=== PATIENT | female | born 1960 | race Caucasian/White ===

== ENCOUNTER 2020-03-16 12:18 | Inpatient (IN) ==
[2020-03-16 13:53] LABS: Mean Corpuscular Hemoglobin 32.3 pg (28.0-33.3); Mean Corpuscular Volume 96.5 fL (83.0-100.0)
[2020-03-16 13:55] LABS: Basophils % 0.3 %; Eosinophils % 0.2 %; Hematocrit 35.8 % (35.3-44.9); Immature Granulocytes % 0.9 % (0-4); Immature Platelets 3.1 % (1.1-6.1); Lymphocytes # 0.9 K/mcL (0.6-4.6); Lymphocytes % 9.3 %; Mean Corpuscular HGB Conc 33.5 g/dL (31.6-35.5); Mean Platelet Volume 9.6 fL (9.4-12.4); Monocytes # 1.3 K/mcL (0.0-1.3); Monocytes % 13.5 %; Neutrophils # 7.1 K/mcL (1.6-8.9); Platelet Count 145 K/mcL (140-400); Red Blood Count 3.71 M/mcL (3.82-4.97); Red Cell Distribution Width 14.3 % (11.5-14.5); Segmented Neutrophils % 75.8 %; White Blood Count 9.4 K/mcL (4.3-11.1)
[2020-03-16 14:07] LABS: BUN/Creatinine Ratio 18 (6-26); Blood Urea Nitrogen 45 mg/dL (6-20); Calcium 9.2 mg/dL (8.6-10.3); Carbon Dioxide 21 mEq/L (23-29); Chloride 100 mEq/L (98-107); Ethanol < 10 mg/dL (Less than 10); Glucose 104 mg/dL (70-105); Osmolality,Calculated 294 (280-300); Potassium 2.7 mEq/L (3.5-5.1); Sodium 136 mEq/L (136-145); eGFR For African Americans 25 (> 60); eGFR For Non-African Americans 20 (> 60)
[2020-03-16] MEDS ORDERED: 0.9 % Sodium Chloride 1,000 ML IVC ONE (14:15)
[2020-03-16] MEDS ORDERED: Potassium Chloride Elixir 20 MEQ/15 ML UDC PO ONE (14:40)
[2020-03-16] MEDS ORDERED: Naloxone 0.4 MG/ML INJ IVP PRN (16:54)
[2020-03-16] MEDS ORDERED: Acetaminophen 325 MG TABLET PO PRN (16:54)
[2020-03-16] MEDS ORDERED: Ondansetron 4 MG/2 ML VIAL IVP PRN (16:54)
[2020-03-16] MEDS ORDERED: MOM Conc 10 ML UD.LIQ PO PRN (16:54)
[2020-03-16] MEDS ORDERED: Mag Hydrox/Al Hydrox/Simeth 30 ML UDC PO PRN (16:54)
[2020-03-16] MEDS ORDERED: Perflutren Lipid Microsphere 1.3 ML in 0.9 % Sodium Chloride 8.7 ML IVP PRN (16:58)
[2020-03-16] MEDS: 0.45 % Sodium Chloride w/KCl 20 MEQ/1,000 ML MLS IVC SCH (17:34)
[2020-03-16 17:51] LABS: Bilirubin,Urine Negative (Negative); Blood,Urine Large (Negative); Clarity,Urine Clear (Clear); Color,Urine Light-Yellow (Yellow); Glucose,Urine (UA) Normal (Normal); Ketones,Urine Trace mg/dL (Negative); Leukocyte Esterase,Urine Negative (Negative); Nitrite,Urine Negative (Negative); PH,Urine 6.5 pH Units (5.0-8.0); Protein,Urine 50 mg/dL (Neg-Trace); Specific Gravity,Urine 1.017 (1.010-1.025); Squamous Epithelial Cell,Urine Few per hpf (None-Few); Urobilinogen,Urine Normal (Normal)
[2020-03-16] MEDS: *HR* Heparin 5,000 UNIT/ML VIAL SQ SCH (18:11)
[2020-03-17 01:12] LABS: Troponin I 0.05 ng/mL (< 0.04)
[2020-03-17 01:22] LABS: Basophils % 0.5 %; Eosinophils % 0.5 %; Hematocrit 32.3 % (35.3-44.9); Hemoglobin 10.9 g/dL (11.5-15.4); Immature Granulocytes % 1.3 % (0-4); Lymphocytes # 1.4 K/mcL (0.6-4.6); Lymphocytes % 17.5 %; Mean Corpuscular HGB Conc 33.7 g/dL (31.6-35.5); Mean Corpuscular Hemoglobin 33.2 pg (28.0-33.3); Mean Corpuscular Volume 98.5 fL (83.0-100.0); Mean Platelet Volume 10.1 fL (9.4-12.4); Monocytes # 1.2 K/mcL (0.0-1.3); Monocytes % 14.4 %; Neutrophils # 5.3 K/mcL (1.6-8.9); Platelet Count 113 K/mcL (140-400); Red Blood Count 3.28 M/mcL (3.82-4.97); Red Cell Distribution Width 14.4 % (11.5-14.5); Segmented Neutrophils % 65.8 %
[2020-03-17 01:35] LABS: Albumin 3.3 g/dL (3.5-5.7); Albumin/Globulin Ratio 1.2 (1.1-2.2); Bilirubin,Total 0.4 mg/dL (0.3-1.0); Calcium 8.4 mg/dL (8.6-10.3); Chol/HDL Ratio 4.8 (0-4.9); Globulin 2.7 g/dL (2.4-3.5); Magnesium 1.9 mg/dL (1.6-2.6); Phosphorous 2.6 mg/dL (2.7-4.5); Thyroid Stimulating Hormone 1.634 mcIU/mL (0.340-5.600)
[2020-03-17 01:52] LABS: Vitamin D 25 Hydroxy 21 ng/mL (30-80)
[2020-03-17 01:55] LABS: Vitamin B12 > 1500 pg/mL (250-1100)
[2020-03-17] MEDS: 0.45 % Sodium Chloride w/KCl 20 MEQ/1,000 ML MLS IVC SCH ×2 (03:36→15:10)
[2020-03-17] MEDS: *HR* Heparin 5,000 UNIT/ML VIAL SQ SCH ×2 (06:04→21:50)
[2020-03-17] MEDS: Aspirin Enteric Coated 81 MG Tablet PO SCH (08:48)
[2020-03-17 09:30] LABS: Amphetamine Screen,Urine Negative ng/mL (Cutoff=1000); Barbiturate Screen,Urine Negative ng/mL (Cutoff=200); Benzodiazepines Screen,Urine Negative ng/mL (Cutoff=200); Cannabinoid Screen,Urine Negative ng/mL (Cutoff = 50); Cocaine Screen,Urine Negative ng/mL (Cutoff= 300); Opiate Screen,Urine Positive ng/mL (Cutoff=300); Phencyclidine Screen,Urine Negative ng/mL (Cutoff=25)
[2020-03-17 19:41] LABS: Bilirubin,Urine Negative (Negative); Blood,Urine Moderate (Negative); Clarity,Urine Clear (Clear); Color,Urine Colorless (Yellow); Glucose,Urine (UA) Normal (Normal); Ketones,Urine Trace mg/dL (Negative); Leukocyte Esterase,Urine Negative (Negative); Mucus,Urine Few per lpf (None-Few); Nitrite,Urine Negative (Negative); Protein,Urine Negative (Neg-Trace); RBC,Urine 0-3 per hpf (0-3); Specific Gravity,Urine 1.007 (1.010-1.025); Squamous Epithelial Cell,Urine Few per hpf (None-Few); Urobilinogen,Urine Normal (Normal); WBC,Urine 0-3 per hpf (0-3)
[2020-03-17] MEDS ORDERED: QUEtiapine Fumarate 100 MG TABLET PO SCH (21:00)
[2020-03-17] MEDS ORDERED: *HR* LORazepam 0.5 MG TABLET PO ONE (23:21)
[2020-03-18] MEDS ORDERED: *HR* LORazepam 0.5 MG TABLET PO ONE (01:12)
[2020-03-18] MEDS ORDERED: *HR* LORazepam 2 MG/ML VIAL IVP ONE (01:48)
[2020-03-18] MEDS: 0.45 % Sodium Chloride w/KCl 20 MEQ/1,000 ML MLS IVC SCH (05:35)
[2020-03-18] MEDS: *HR* Heparin 5,000 UNIT/ML VIAL SQ SCH ×2 (05:35→16:32)
[2020-03-18 05:49] LABS: BUN/Creatinine Ratio 16 (6-26); Blood Urea Nitrogen 19 mg/dL (6-20); Calcium 8.9 mg/dL (8.6-10.3); Carbon Dioxide 18 mEq/L (23-29); Chloride 107 mEq/L (98-107); Glucose 81 mg/dL (70-105); Osmolality,Calculated 283 (280-300); Phosphorous < 1.0 mg/dL (2.7-4.5); Potassium 4.2 mEq/L (3.5-5.1); Sodium 136 mEq/L (136-145); eGFR For African Americans 58 (> 60); eGFR For Non-African Americans 48 (> 60)
[2020-03-18] MEDS: Cyanocobalamin (B-12) 1,000 MCG TABLET PO SCH ×2 (08:03→08:59)
[2020-03-18] MEDS: Aspirin Enteric Coated 81 MG Tablet PO SCH ×2 (08:03→08:59)
[2020-03-18] MEDS: ARIPiprazole 5 MG TABLET PO SCH ×2 (08:03→08:59)
[2020-03-18] MEDS ORDERED: Haloperidol Lactate 5 MG/ML VIAL IVP ONE ×2 (08:39→08:41)
[2020-03-18] MEDS: atenoloL 50 MG TABLET PO SCH (08:59)
[2020-03-18] MEDS ORDERED: Haloperidol Lactate 5 MG/ML VIAL IVP PRN (10:02)
[2020-03-18] MEDS: Ziprasidone 80 MG CAPSULE PO SCH ×2 (10:17→20:09)
[2020-03-18] MEDS: Divalproex (12 HR) 250 MG TABLET PO SCH ×2 (10:17→20:09)
[2020-03-18] MEDS ORDERED: Haloperidol Lactate 5 MG/ML VIAL IM PRN (12:27)
[2020-03-18] MEDS ORDERED: QUEtiapine Fumarate 100 MG TABLET PO PRN (12:28)
[2020-03-18] MEDS: Baclofen 10 MG TABLET PO SCH ×2 (12:31→20:09)
[2020-03-19] MEDS: *HR* Heparin 5,000 UNIT/ML VIAL SQ SCH ×2 (05:15→17:43)
[2020-03-19 07:54] LABS: Hematocrit 35.8 % (35.3-44.9); Hemoglobin 11.3 g/dL (11.5-15.4); Mean Corpuscular HGB Conc 31.6 g/dL (31.6-35.5); Mean Corpuscular Hemoglobin 32.4 pg (28.0-33.3); Mean Corpuscular Volume 102.6 fL (83.0-100.0); Mean Platelet Volume 9.9 fL (9.4-12.4); Platelet Count 148 K/mcL (140-400); Red Blood Count 3.49 M/mcL (3.82-4.97); Red Cell Distribution Width 14.9 % (11.5-14.5); White Blood Count 7.1 K/mcL (4.3-11.1)
[2020-03-19 07:57] LABS: BUN/Creatinine Ratio 14 (6-26); Blood Urea Nitrogen 14 mg/dL (6-20); Calcium 9.1 mg/dL (8.6-10.3); Carbon Dioxide 19 mEq/L (23-29); Chloride 110 mEq/L (98-107); Glucose 68 mg/dL (70-105); Osmolality,Calculated 289 (280-300); Phosphorous 3.2 mg/dL (2.7-4.5); Sodium 140 mEq/L (136-145); eGFR For African Americans > 60 (> 60); eGFR For Non-African Americans 56 (> 60)
[2020-03-19] MEDS: Ziprasidone 80 MG CAPSULE PO SCH ×2 (09:02→20:05)
[2020-03-19] MEDS: Vitamin B Complex/Vit C/Vit E 1 EACH TABLET PO SCH (09:04)
[2020-03-19] MEDS: Aspirin Enteric Coated 81 MG Tablet PO SCH (09:04)
[2020-03-19] MEDS: Divalproex (12 HR) 250 MG TABLET PO SCH ×2 (09:05→20:04)
[2020-03-19] MEDS: atenoloL 50 MG TABLET PO SCH (09:06)
[2020-03-19] MEDS: Cyanocobalamin (B-12) 1,000 MCG TABLET PO SCH (09:06)
[2020-03-19] MEDS: Baclofen 10 MG TABLET PO SCH ×2 (14:38→20:05)
[2020-03-20 02:53] LABS: Hematocrit 34.3 % (35.3-44.9); Mean Corpuscular HGB Conc 32.1 g/dL (31.6-35.5); Mean Corpuscular Hemoglobin 32.5 pg (28.0-33.3); Mean Corpuscular Volume 101.5 fL (83.0-100.0); Mean Platelet Volume 9.8 fL (9.4-12.4); Platelet Count 155 K/mcL (140-400); Red Blood Count 3.38 M/mcL (3.82-4.97); Red Cell Distribution Width 15.3 % (11.5-14.5); White Blood Count 7.9 K/mcL (4.3-11.1)
[2020-03-20 03:16] LABS: Calcium 8.7 mg/dL (8.6-10.3); Potassium 3.6 mEq/L (3.5-5.1)
[2020-03-20] MEDS: *HR* Heparin 5,000 UNIT/ML VIAL SQ SCH (05:06)
[2020-03-20] MEDS ORDERED: 0.9 % Sodium Chloride 500 ML IVC SCH (07:45)
[2020-03-20] MEDS: Divalproex (12 HR) 250 MG TABLET PO SCH (08:08)
[2020-03-20] MEDS: atenoloL 50 MG TABLET PO SCH (08:09)
[2020-03-20] MEDS: Aspirin Enteric Coated 81 MG Tablet PO SCH (08:09)
[2020-03-20] MEDS: Vitamin B Complex/Vit C/Vit E 1 EACH TABLET PO SCH (08:09)
[2020-03-20] MEDS: Ziprasidone 80 MG CAPSULE PO SCH (08:09)
[2020-03-20] MEDS: Cyanocobalamin (B-12) 1,000 MCG TABLET PO SCH (08:09)
[2020-03-20 11:29] VITALS: BP 111/72
[2020-03-20] MEDS: Baclofen 10 MG TABLET PO SCH (12:17)
== END 2020-03-20 17:06 | DRG 71 ==
LOC: EMEROOARM 12:18 → 3BNU 12:18
PROVIDERS: ADMIT Internal Medicine; ATTEND Internal Medicine

== ENCOUNTER 2021-06-09 19:37 | Inpatient (IN) ==
[2021-06-09] MEDS ORDERED: Acetaminophen 325 MG TABLET PO PRN (21:18)
[2021-06-09] MEDS ORDERED: Ondansetron 4 MG/2 ML VIAL IVP PRN (21:18)
[2021-06-09] MEDS ORDERED: Naloxone 0.4 MG/ML INJ IVP PRN (21:18)
[2021-06-09 22:24] LABS: Calcium 8.6 mg/dL (8.6-10.3); Potassium 2.9 mEq/L (3.5-5.1); Troponin I 0.11 ng/mL (< 0.04)
[2021-06-09] MEDS: 0.9 % Sodium Chloride 1,000 ML IVC SCH (23:05)
[2021-06-09] MEDS ORDERED: 0.9 % Sodium Chloride 500 ML IVC PRN (23:53)
[2021-06-10 03:29] LABS: Bilirubin,Urine Negative (Negative); Blood,Urine Large (Negative); Clarity,Urine Turbid (Clear); Color,Urine Yellow (Yellow); Glucose,Urine (UA) Normal (Normal); Ketones,Urine Trace mg/dL (Negative); Leukocyte Esterase,Urine Moderate (Negative); Mucus,Urine Few per lpf (None-Few); Nitrite,Urine Negative (Negative); Protein,Urine 50 mg/dL (Neg-Trace); RBC,Urine TNTC per hpf (0-3); Specific Gravity,Urine 1.018 (1.010-1.025); Squamous Epithelial Cell,Urine Few per hpf (None-Few); Urobilinogen,Urine Normal (Normal); WBC,Urine 30-50 per hpf (0-3)
[2021-06-10] MEDS: cefTRIAXone 1,000 MG in 0.9 % Sodium Chloride Mini Bag 100 ML IVPB SCH (04:24)
[2021-06-10 04:29] LABS: Basophils % 0.3 %; Eosinophils % 0.4 %; Hematocrit 37.4 % (35.3-44.9); Hemoglobin 12.1 g/dL (11.5-15.4); Immature Granulocytes % 0.8 % (0-4); Lymphocytes # 1.2 K/mcL (0.6-4.6); Lymphocytes % 11.5 %; Mean Corpuscular HGB Conc 32.4 g/dL (31.6-35.5); Mean Corpuscular Hemoglobin 30.9 pg (28.0-33.3); Mean Corpuscular Volume 95.7 fL (83.0-100.0); Mean Platelet Volume 10.7 fL (9.4-12.4); Monocytes # 1.4 K/mcL (0.0-1.3); Monocytes % 12.6 %; Platelet Count 165 K/mcL (140-400); Red Blood Count 3.91 M/mcL (3.82-4.97); Red Cell Distribution Width 14.5 % (11.5-14.5); Segmented Neutrophils % 74.4 %; White Blood Count 10.7 K/mcL (4.3-11.1)
[2021-06-10 04:39] LABS: INR 1.4; Prothrombin Time 16.1 Seconds (9.4-12.1)
[2021-06-10 04:48] LABS: Chol/HDL Ratio 5.3 (0-4.9); Magnesium 1.9 mg/dL (1.6-2.6); Phosphorous 4.6 mg/dL (2.7-4.5)
[2021-06-10 05:01] LABS: Thyroid Stimulating Hormone 1.828 mcIU/mL (0.340-5.600)
[2021-06-10] MEDS ORDERED: *HR* Heparin 5,000 UNIT/ML VIAL IVP ONE (05:37)
[2021-06-10] MEDS ORDERED: *HR* Heparin 5,000 UNIT/ML VIAL IVP PRN ×2 (05:37)
[2021-06-10] MEDS ORDERED: Perflutren Lipid Microsphere 1.3 ML in 0.9 % Sodium Chloride 8.7 ML IVP PRN ×2 (05:38→10:32)
[2021-06-10] MEDS ORDERED: Heparin 25,000UNIT/250ML 1/2NS 25,000 UNIT/250 ML IV.SOLN IVC SCH (05:45)
[2021-06-10] MEDS: 0.9 % Sodium Chloride 1,000 ML IVC SCH (08:35)
[2021-06-10] MEDS ORDERED: Aspirin Enteric Coated 325 MG Tablet PO SCH (09:00)
[2021-06-10 14:06] LABS: Calcium 8.2 mg/dL (8.6-10.3); Potassium 3.6 mEq/L (3.5-5.1)
[2021-06-10] MEDS ORDERED: Acetaminophen 325 MG TABLET PO PRN (18:44)
[2021-06-11 03:02] LABS: Chol/HDL Ratio 4.6 (0-4.9)
[2021-06-11 03:04] LABS: Albumin 2.9 g/dL (3.5-5.7); Albumin/Globulin Ratio 1.1 (1.1-2.2); Bilirubin,Direct 0.1 mg/dL (0.0-0.2); Bilirubin,Indirect 0.2 mg/dL (0.0-1.0); Bilirubin,Total 0.3 mg/dL (0.3-1.0); Calcium 8.5 mg/dL (8.6-10.3); Globulin 2.7 g/dL (2.4-3.5); Potassium 3.5 mEq/L (3.5-5.1); Total Protein 5.6 g/dL (6.4-8.9)
[2021-06-11 03:47] LABS: Estimated Average Glucose 126 mg/dl
[2021-06-11] MEDS ORDERED: Nitroglycerin 0.4 MG TAB.SUBL SL PRN (07:40)
[2021-06-11] MEDS: cefTRIAXone 1,000 MG in 0.9 % Sodium Chloride Mini Bag 100 ML IVPB SCH (08:21)
[2021-06-11] MEDS: Metoprolol XL (24 HR) Succ 25 MG TAB.ER.24H PO SCH (08:22)
[2021-06-11] MEDS: Divalproex (12 HR) 250 MG TABLET PO SCH ×2 (08:22→21:18)
[2021-06-11] MEDS: Aspirin Enteric Coated 81 MG Tablet PO SCH (08:22)
[2021-06-11] MEDS: Cyanocobalamin (B-12) 1,000 MCG TABLET PO SCH (08:22)
[2021-06-12 05:31] LABS: Basophils # 0.1 K/mcL (0.0-0.2); Basophils % 0.8 %; Eosinophils # 0.2 K/mcL (0.0-0.6); Eosinophils % 2.1 %; Hematocrit 36.2 % (35.3-44.9); Hemoglobin 11.8 g/dL (11.5-15.4); Immature Granulocytes % 4.1 % (0-4); Lymphocytes # 1.4 K/mcL (0.6-4.6); Lymphocytes % 16.9 %; Mean Corpuscular HGB Conc 32.6 g/dL (31.6-35.5); Mean Corpuscular Hemoglobin 31.3 pg (28.0-33.3); Mean Platelet Volume 10.4 fL (9.4-12.4); Monocytes # 1.1 K/mcL (0.0-1.3); Monocytes % 12.9 %; Neutrophils # 5.3 K/mcL (1.6-8.9); Platelet Count 168 K/mcL (140-400); Red Blood Count 3.77 M/mcL (3.82-4.97); Red Cell Distribution Width 14.7 % (11.5-14.5); Segmented Neutrophils % 63.2 %; White Blood Count 8.4 K/mcL (4.3-11.1)
[2021-06-12 05:49] LABS: BUN/Creatinine Ratio 23 (6-26); Blood Urea Nitrogen 23 mg/dL (6-20); Calcium 8.8 mg/dL (8.6-10.3); Carbon Dioxide 18 mEq/L (23-29); Chloride 111 mEq/L (98-107); Creatine Kinase 349 Units/L (30-223); Glucose 76 mg/dL (70-105); Magnesium 1.9 mg/dL (1.6-2.6); Osmolality,Calculated 288 (280-300); Potassium 3.6 mEq/L (3.5-5.1); Sodium 138 mEq/L (136-145); eGFR For African Americans > 60 (> 60); eGFR For Non-African Americans 56 (> 60)
[2021-06-12] MEDS: Cyanocobalamin (B-12) 1,000 MCG TABLET PO SCH (07:47)
[2021-06-12] MEDS: Divalproex (12 HR) 250 MG TABLET PO SCH ×2 (07:48→20:12)
[2021-06-12] MEDS: risperiDONE 1 MG TABLET PO SCH ×2 (07:48→20:12)
[2021-06-12] MEDS: Metoprolol XL (24 HR) Succ 25 MG TAB.ER.24H PO SCH (07:48)
[2021-06-12] MEDS: cefTRIAXone 1,000 MG in 0.9 % Sodium Chloride Mini Bag 100 ML IVPB SCH (07:48)
[2021-06-12] MEDS: Aspirin Enteric Coated 81 MG Tablet PO SCH (07:48)
[2021-06-12] MEDS ORDERED: Lidocaine Viscous Oral Soln 15 ML SOLUTION MM PRN (10:19)
[2021-06-12] MEDS ORDERED: 0.9 % Sodium Chloride 500 ML IVC ONE (10:22)
[2021-06-12] MEDS: *HR* FentaNYL (PF) 100 MCG/2 ML VIAL IVP PRN ×2 (11:00→11:05)
[2021-06-12] MEDS: *HR* Midazolam HCl 5 MG/5 ML VIAL IVP PRN ×2 (11:00→11:05)
[2021-06-12] MEDS: QUEtiapine Fumarate 100 MG TABLET PO SCH (20:12)
[2021-06-13 06:58] LABS: Basophils # 0.1 K/mcL (0.0-0.2); Basophils % 0.7 %; Eosinophils # 0.2 K/mcL (0.0-0.6); Eosinophils % 2.2 %; Hemoglobin 11.9 g/dL (11.5-15.4); Immature Granulocytes % 4.2 % (0-4); Lymphocytes # 0.9 K/mcL (0.6-4.6); Lymphocytes % 13.1 %; Mean Corpuscular HGB Conc 33.1 g/dL (31.6-35.5); Mean Corpuscular Hemoglobin 31.4 pg (28.0-33.3); Mean Platelet Volume 10.6 fL (9.4-12.4); Monocytes # 0.9 K/mcL (0.0-1.3); Monocytes % 12.7 %; Neutrophils # 4.8 K/mcL (1.6-8.9); Platelet Count 172 K/mcL (140-400); Red Blood Count 3.79 M/mcL (3.82-4.97); Red Cell Distribution Width 14.6 % (11.5-14.5); Segmented Neutrophils % 67.1 %; White Blood Count 7.2 K/mcL (4.3-11.1)
[2021-06-13 07:20] LABS: BUN/Creatinine Ratio 16 (6-26); Blood Urea Nitrogen 13 mg/dL (6-20); Calcium 8.6 mg/dL (8.6-10.3); Carbon Dioxide 19 mEq/L (23-29); Chloride 111 mEq/L (98-107); Creatine Kinase 185 Units/L (30-223); Glucose 96 mg/dL (70-105); Magnesium 1.8 mg/dL (1.6-2.6); Osmolality,Calculated 290 (280-300); Potassium 3.3 mEq/L (3.5-5.1); Sodium 140 mEq/L (136-145); eGFR For African Americans > 60 (> 60); eGFR For Non-African Americans > 60 (> 60)
[2021-06-13] MEDS: Aspirin Enteric Coated 81 MG Tablet PO SCH (09:10)
[2021-06-13] MEDS: Metoprolol XL (24 HR) Succ 25 MG TAB.ER.24H PO SCH (09:10)
[2021-06-13] MEDS: risperiDONE 1 MG TABLET PO SCH ×2 (09:10→19:48)
[2021-06-13] MEDS: cefTRIAXone 1,000 MG in 0.9 % Sodium Chloride Mini Bag 100 ML IVPB SCH (09:10)
[2021-06-13] MEDS: Divalproex (12 HR) 250 MG TABLET PO SCH ×2 (09:10→19:48)
[2021-06-13] MEDS: Cyanocobalamin (B-12) 1,000 MCG TABLET PO SCH (09:10)
[2021-06-13] MEDS: QUEtiapine Fumarate 100 MG TABLET PO SCH (19:48)
[2021-06-14] MEDS: Cyanocobalamin (B-12) 1,000 MCG TABLET PO SCH (09:01)
[2021-06-14] MEDS: Aspirin Enteric Coated 81 MG Tablet PO SCH (09:01)
[2021-06-14] MEDS: Metoprolol XL (24 HR) Succ 25 MG TAB.ER.24H PO SCH (09:01)
[2021-06-14] MEDS: cefTRIAXone 1,000 MG in 0.9 % Sodium Chloride Mini Bag 100 ML IVPB SCH (09:01)
[2021-06-14] MEDS: Divalproex (12 HR) 250 MG TABLET PO SCH (09:01)
[2021-06-14] MEDS: risperiDONE 1 MG TABLET PO SCH (09:01)
[2021-06-14 09:35] LABS: Basophils # 0.1 K/mcL (0.0-0.2); Basophils % 0.9 %; Eosinophils # 0.1 K/mcL (0.0-0.6); Eosinophils % 1.8 %; Hematocrit 35.8 % (35.3-44.9); Hemoglobin 11.8 g/dL (11.5-15.4); Immature Granulocytes % 4.8 % (0-4); Lymphocytes # 1.1 K/mcL (0.6-4.6); Lymphocytes % 14.7 %; Mean Platelet Volume 10.3 fL (9.4-12.4); Monocytes # 1.1 K/mcL (0.0-1.3); Monocytes % 14.7 %; Neutrophils # 4.8 K/mcL (1.6-8.9); Platelet Count 165 K/mcL (140-400); Red Blood Count 3.81 M/mcL (3.82-4.97); Red Cell Distribution Width 14.6 % (11.5-14.5); Segmented Neutrophils % 63.1 %; White Blood Count 7.7 K/mcL (4.3-11.1)
[2021-06-14 09:54] LABS: BUN/Creatinine Ratio 12 (6-26); Blood Urea Nitrogen 9 mg/dL (6-20); Calcium 8.6 mg/dL (8.6-10.3); Carbon Dioxide 21 mEq/L (23-29); Chloride 109 mEq/L (98-107); Glucose 110 mg/dL (70-105); Magnesium 1.8 mg/dL (1.6-2.6); Osmolality,Calculated 285 (280-300); Potassium 3.2 mEq/L (3.5-5.1); Sodium 138 mEq/L (136-145); eGFR For African Americans > 60 (> 60); eGFR For Non-African Americans > 60 (> 60)
[2021-06-14 16:46] VITALS: BP 145/91; PULSE 92; TEMP 98.1; O2SAT 96
== END 2021-06-14 18:55 | DRG 64 ==
LOC: 2ANU → SUATTDRO 21:06
PROVIDERS: ADMIT Hospitalist; ATTEND Pharmacist

== ENCOUNTER 2021-06-17 13:05 | Inpatient (IN) ==
[2021-06-17] MEDS ORDERED: Ondansetron ODT 4 MG TAB.RAPDIS SL PRN (16:36)
[2021-06-17] MEDS ORDERED: MOM Conc 10 ML UD.LIQ PO PRN (16:36)
[2021-06-17] MEDS ORDERED: Mag Hydrox/Al Hydrox/Simeth 30 ML UDC PO PRN (16:36)
[2021-06-17] MEDS ORDERED: Naloxone 0.4 MG/ML INJ IVP PRN (16:36)
[2021-06-17] MEDS ORDERED: Nitroglycerin 0.4 MG TAB.SUBL SL PRN (20:45)
[2021-06-17] MEDS ORDERED: tiZANidine 4 MG TABLET PO PRN (20:50)
[2021-06-17] MEDS: Divalproex (12 HR) 250 MG TABLET PO SCH (21:49)
[2021-06-17] MEDS: risperiDONE 1 MG TABLET PO SCH (21:49)
[2021-06-17] MEDS: QUEtiapine Fumarate 100 MG TABLET PO SCH (21:50)
[2021-06-18 06:03] LABS: Basophils # 0.1 K/mcL (0.0-0.2); Basophils % 0.8 %; Eosinophils # 0.1 K/mcL (0.0-0.6); Eosinophils % 2.1 %; Hematocrit 33.8 % (35.3-44.9); Hemoglobin 11.2 g/dL (11.5-15.4); Immature Granulocytes % 4.7 % (0-4); Lymphocytes # 0.5 K/mcL (0.6-4.6); Lymphocytes % 7.7 %; Mean Corpuscular HGB Conc 33.1 g/dL (31.6-35.5); Mean Corpuscular Hemoglobin 31.1 pg (28.0-33.3); Mean Corpuscular Volume 93.9 fL (83.0-100.0); Mean Platelet Volume 10.1 fL (9.4-12.4); Monocytes # 1.2 K/mcL (0.0-1.3); Monocytes % 19.6 %; Neutrophils # 4.1 K/mcL (1.6-8.9); Platelet Count 168 K/mcL (140-400); Red Cell Distribution Width 14.3 % (11.5-14.5); Segmented Neutrophils % 65.1 %; White Blood Count 6.3 K/mcL (4.3-11.1)
[2021-06-18 06:35] LABS: Platelet Estimate Normal (Normal)
[2021-06-18 08:45] LABS: BUN/Creatinine Ratio 8 (6-26); Blood Urea Nitrogen 6 mg/dL (6-20); Calcium 8.6 mg/dL (8.6-10.3); Carbon Dioxide 20 mEq/L (23-29); Chloride 105 mEq/L (98-107); Glucose 101 mg/dL (70-105); Osmolality,Calculated 276 (280-300); Potassium 3.7 mEq/L (3.5-5.1); Sodium 134 mEq/L (136-145); eGFR For African Americans > 60 (> 60); eGFR For Non-African Americans > 60 (> 60)
[2021-06-18] MEDS: Metoprolol XL (24 HR) Succ 25 MG TAB.ER.24H PO SCH (08:59)
[2021-06-18] MEDS: Cyanocobalamin (B-12) 1,000 MCG TABLET PO SCH (08:59)
[2021-06-18] MEDS: Aspirin Enteric Coated 81 MG Tablet PO SCH (08:59)
[2021-06-18] MEDS: risperiDONE 1 MG TABLET PO SCH ×2 (08:59→21:55)
[2021-06-18] MEDS: Divalproex (12 HR) 250 MG TABLET PO SCH ×2 (10:07→21:56)
[2021-06-18] MEDS: QUEtiapine Fumarate 100 MG TABLET PO SCH (21:56)
[2021-06-18 22:34] LABS: Bilirubin,Urine Negative (Negative); Blood,Urine Large (Negative); Clarity,Urine Turbid (Clear); Color,Urine Light-Yellow (Yellow); Glucose,Urine (UA) Normal (Normal); Ketones,Urine Negative (Negative); Leukocyte Esterase,Urine Negative (Negative); Mucus,Urine Few per lpf (None-Few); Nitrite,Urine Negative (Negative); Protein,Urine Trace mg/dL (Neg-Trace); RBC,Urine TNTC per hpf (0-3); Specific Gravity,Urine 1.011 (1.010-1.025); Squamous Epithelial Cell,Urine Moderate per hpf (None-Few); Urobilinogen,Urine Normal (Normal)
[2021-06-19] MEDS: Aspirin Enteric Coated 81 MG Tablet PO SCH (09:43)
[2021-06-19] MEDS: Cyanocobalamin (B-12) 1,000 MCG TABLET PO SCH (09:43)
[2021-06-19] MEDS: Metoprolol XL (24 HR) Succ 25 MG TAB.ER.24H PO SCH (09:44)
[2021-06-19] MEDS: risperiDONE 1 MG TABLET PO SCH ×2 (09:44→22:47)
[2021-06-19] MEDS: Divalproex (12 HR) 250 MG TABLET PO SCH ×2 (09:44→22:47)
[2021-06-19] MEDS: QUEtiapine Fumarate 100 MG TABLET PO SCH (22:48)
[2021-06-20] MEDS: Metoprolol XL (24 HR) Succ 25 MG TAB.ER.24H PO SCH (08:42)
[2021-06-20] MEDS: Cyanocobalamin (B-12) 1,000 MCG TABLET PO SCH (08:42)
[2021-06-20] MEDS: Divalproex (12 HR) 250 MG TABLET PO SCH ×2 (08:42→21:05)
[2021-06-20] MEDS: Aspirin Enteric Coated 81 MG Tablet PO SCH (08:42)
[2021-06-20] MEDS: risperiDONE 1 MG TABLET PO SCH ×2 (08:42→21:05)
[2021-06-20] MEDS: QUEtiapine Fumarate 100 MG TABLET PO SCH (21:06)
[2021-06-21] MEDS: Cyanocobalamin (B-12) 1,000 MCG TABLET PO SCH (07:12)
[2021-06-21] MEDS: Metoprolol XL (24 HR) Succ 25 MG TAB.ER.24H PO SCH (07:12)
[2021-06-21] MEDS: risperiDONE 1 MG TABLET PO SCH ×2 (07:13→21:15)
[2021-06-21] MEDS: Aspirin Enteric Coated 81 MG Tablet PO SCH (07:13)
[2021-06-21] MEDS: Divalproex (12 HR) 250 MG TABLET PO SCH ×2 (07:13→21:14)
[2021-06-21] MEDS: QUEtiapine Fumarate 100 MG TABLET PO SCH (21:14)
[2021-06-22] MEDS: Divalproex (12 HR) 250 MG TABLET PO SCH ×2 (07:50→19:37)
[2021-06-22] MEDS: Metoprolol XL (24 HR) Succ 25 MG TAB.ER.24H PO SCH (07:50)
[2021-06-22] MEDS: risperiDONE 1 MG TABLET PO SCH ×2 (07:50→19:37)
[2021-06-22] MEDS: Aspirin Enteric Coated 81 MG Tablet PO SCH (07:51)
[2021-06-22] MEDS: Cyanocobalamin (B-12) 1,000 MCG TABLET PO SCH (07:51)
[2021-06-22 17:21] LABS: Bacteria,Urine Few per hpf (None-Few); Bilirubin,Urine Negative (Negative); Blood,Urine Moderate (Negative); Clarity,Urine Clear (Clear); Color,Urine Light-Yellow (Yellow); Glucose,Urine (UA) Normal (Normal); Ketones,Urine Negative (Negative); Leukocyte Esterase,Urine Negative (Negative); Mucus,Urine Few per lpf (None-Few); Nitrite,Urine Negative (Negative); Protein,Urine 30 mg/dL (Neg-Trace); RBC,Urine 50-100 per hpf (0-3); Specific Gravity,Urine 1.013 (1.010-1.025); Squamous Epithelial Cell,Urine Few per hpf (None-Few); Urobilinogen,Urine Normal (Normal)
[2021-06-22] MEDS: QUEtiapine Fumarate 100 MG TABLET PO SCH (19:37)
[2021-06-23] MEDS: Aspirin Enteric Coated 81 MG Tablet PO SCH (07:49)
[2021-06-23] MEDS: risperiDONE 1 MG TABLET PO SCH ×2 (07:49→20:11)
[2021-06-23] MEDS: Divalproex (12 HR) 250 MG TABLET PO SCH ×2 (07:49→20:12)
[2021-06-23] MEDS: Metoprolol XL (24 HR) Succ 25 MG TAB.ER.24H PO SCH (07:49)
[2021-06-23] MEDS: Cyanocobalamin (B-12) 1,000 MCG TABLET PO SCH (07:50)
[2021-06-23] MEDS: Melatonin 3 MG TABLET PO PRN (20:11)
[2021-06-23] MEDS: QUEtiapine Fumarate 100 MG TABLET PO SCH (20:11)
[2021-06-24] MEDS: Aspirin Enteric Coated 81 MG Tablet PO SCH (07:26)
[2021-06-24] MEDS: Metoprolol XL (24 HR) Succ 25 MG TAB.ER.24H PO SCH (07:26)
[2021-06-24] MEDS: Divalproex (12 HR) 250 MG TABLET PO SCH ×2 (07:26→22:40)
[2021-06-24] MEDS: risperiDONE 1 MG TABLET PO SCH ×2 (07:26→22:40)
[2021-06-24] MEDS: Cyanocobalamin (B-12) 1,000 MCG TABLET PO SCH (07:26)
[2021-06-24] MEDS: QUEtiapine Fumarate 100 MG TABLET PO SCH (22:40)
[2021-06-24] MEDS: Melatonin 3 MG TABLET PO PRN (22:40)
[2021-06-25] MEDS: Aspirin Enteric Coated 81 MG Tablet PO SCH (08:43)
[2021-06-25] MEDS: Divalproex (12 HR) 250 MG TABLET PO SCH ×2 (08:44→20:29)
[2021-06-25] MEDS: Metoprolol XL (24 HR) Succ 25 MG TAB.ER.24H PO SCH (08:44)
[2021-06-25] MEDS: Cyanocobalamin (B-12) 1,000 MCG TABLET PO SCH (08:46)
[2021-06-25] MEDS: risperiDONE 1 MG TABLET PO SCH ×2 (08:46→20:28)
[2021-06-25] MEDS: QUEtiapine Fumarate 100 MG TABLET PO SCH (20:29)
[2021-06-26] MEDS: Metoprolol XL (24 HR) Succ 25 MG TAB.ER.24H PO SCH (08:00)
[2021-06-26] MEDS: Cyanocobalamin (B-12) 1,000 MCG TABLET PO SCH (08:00)
[2021-06-26] MEDS: Aspirin Enteric Coated 81 MG Tablet PO SCH (08:00)
[2021-06-26] MEDS: risperiDONE 1 MG TABLET PO SCH (08:00)
[2021-06-26] MEDS: Divalproex (12 HR) 250 MG TABLET PO SCH (08:02)
[2021-06-26 09:12] LABS: Influenza A PCR Negative (Negative); Influenza B PCR Negative (Negative); Resp. Syncytial Virus PCR Negative (Negative)
[2021-06-26 09:27] LABS: SARS-CoV-2 by PCR (In House) Negative (Negative)
[2021-06-26 10:37] VITALS: BP 119/77; PULSE 73; TEMP 97.7; O2SAT 95
== END 2021-06-26 15:52 | DRG 885 ==
LOC: 3BNU → SUATTDRO 15:51
PROVIDERS: ADMIT Nurse Practitioner; ATTEND Registered Nurse